=== PATIENT | female | born 1955 | race Caucasian/White ===

== ENCOUNTER → 2018-05-10 | Outpatient (CLI) | payer OTHER ==
--- NOTE | 2018-05-10 13:43 | RAD ---
DATE: 05/10/2018 EXAM: MAMMO ADRIENNE SCREENING BILATERAL HISTORY: Routine screening COMPARISON: 06/23/2016 This study was interpreted with the benefit of Computerized Aided Detection (CAD). Breast Density: SCATTERED The breast parenchyma shows scattered fibroglandular densities. Breast parenchyma level B. FINDINGS: 20 3-D tomosynthesis imaging was performed in CC and MLO projections. No new or enlarging breast densities are seen. Minimal benign type calcifications present. No suspicious microcalcifications have developed. IMPRESSION: There is no mammographic evidence of malignancy in either breast. BI-RADS CATEGORY: 2 BENIGN FINDING(S) RECOMMENDED FOLLOW-UP: 12M 12 MONTH FOLLOW-UP PQRS compliance statement: Patient information was entered into a reminder system with a target due date for the next mammogram. Mammography is a sensitive method for finding small breast cancers, but it does not detect them all and is not a substitute for careful clinical examination. A negative mammogram does not negate a clinically suspicious finding and should not result in delay in biopsying a clinically suspicious abnormality. "Our facility is accredited by the [employer]amm[employer]."
== END | disposition home or self-care (01) ==
LOC: MAMMO 09:59
PROVIDERS: ATTEND Family Medicine
DX: Z12.31 Encounter for screening mammogram for malignant neoplasm of breast (principal)
CPT/HCPCS: 77063; 77067

== ENCOUNTER → 2020-09-12 | Outpatient (CLI) | payer OTHER, MEDICAID ==
--- NOTE | 2020-09-12 09:58 | RAD ---
5 views lumbar spine without comparison for lumbago and right-sided sciatica. FINDINGS: There is no acute osseous or alignment abnormality of the lumbar spine. Intervertebral disc spaces are well-maintained at all levels. There is facet arthrosis at L4-5 and L5-S1, which may prod uce neural foraminal narrowing. This could be better characterized on MRI if clinically warranted. Al so noted is extensive aortoiliac atherosclerosis. IMPRESSION: 1. No acute osseous or alignment abnormality of the lumbar spine. 2. Facet arthrosis of the lower levels. If there is clinical concern for nerve root impingement from neuroforaminal narrowing, further evaluation with MRI should be considered. 3. Extensive aortoiliac atherosclerosis. If there is clinical concern that the patient's symptoms may be attributable to vascular claudication, consider further evaluation with CTA. Electronically signed by: Pete Olsen MD (09/12/2020 9:55 AM) [id number]
--- NOTE | 2020-09-13 10:03 | RAD ---
DATE: 09/12/2020 7:57 AM EXAM: MAMMO ADRIENNE SCREENING BILATERAL HISTORY: Screening COMPARISON: 05/10/2018 Bilateral CC and MLO views of the breasts were performed. Bilateral breast tomosynthesis was performed in CC and MLO projections. This study was interpreted with the benefit of Computerized Aided Detection (CAD). FINDINGS: Breast Density: SCATTERED The breast parenchyma shows scattered fibroglandular densities. Breast parenchyma level B No suspicious masses, microcalcifications or architectural distortion is present to suggest malignancy in either breast. The visualized axillae are unremarkable. IMPRESSION: No mammographic evidence of malignancy. BI-RADS CATEGORY: 1 NEGATIVE RECOMMENDED FOLLOW-UP: 12M 12 MONTH FOLLOW-UP Annual screening mammography is recommended, unless clinically indicated sooner based on symptoms or change in physical exam. PQRS compliance statement: Patient information was entered into a reminder system with a target due date for the next mammogram. Mammography is a sensitive method for finding small breast cancers, but it does not detect them all and is not a substitute for careful clinical examination. A negative mammogram does not negate a clinically suspicious finding and should not result in delay in biopsying a clinically suspicious abnormality. "Our facility is accredited by the [employer]ammography [employer]."
== END ==
LOC: MAMMO 08:10
PROVIDERS: ATTEND Family Medicine
DX: Z12.31 Encounter for screening mammogram for malignant neoplasm of breast (principal); M47.816 Spondylosis without myelopathy or radiculopathy, lumbar region
CPT/HCPCS: 72110; 77063; 77067

== ENCOUNTER 2021-03-11 19:15 | Emergency (ER) | payer OTHER, MEDICAID ==
[~2021-03-11] VITALS: Ht 162.6 cm; Wt 81.8 kg
[2021-03-11 19:44] LABS: BASO # 0.1 x10^3/uL (0.0-0.2); BASO % 1 % (0-3); EOS # 0.2 x10^3/uL (0.0-0.7); EOS % 3 % (0-3); HEMATOCRIT 38.9 % (36.0-47.0); HEMOGLOBIN 13.1 g/dL (12.0-15.5); LYMPH # 2.8 x10^3/uL (1.0-4.8); LYMPH % 33 % (24-48); MEAN CORPUSCULAR HEMOGLOBIN 28 pg (25-35); MEAN CORPUSCULAR HGB CONC 34 g/dL (31-37); MEAN CORPUSCULAR VOLUME 82 fL (79-100); MONO # 0.8 x10^3/uL (0.0-1.1); MONO % 9 % (0-9); NEUT # 4.7 x10^3/uL (1.8-7.7); NEUT % 55 % (31-73); PLATELET COUNT 323 x10^3/uL (140-400); RED BLOOD COUNT 4.72 x10^6/uL (3.50-5.40); RED CELL DISTRIBUTION WIDTH 15.6 % (11.5-14.5); WHITE BLOOD COUNT 8.6 x10^3/uL (4.0-11.0)
--- NOTE | 2021-03-11 19:44 | PHYS DOC ---
Past Medical History Past Medical History: Hypertension, Hypothyroid Past Surgical History: Hysterectomy, Other Additional Past Surgical Histo: left leg Alcohol Use: None Drug Use: None General Adult EDM: Chief Complaint: FLANK PAIN HPI: HPI: Patient is a 65 year old female with a history of hypertension, COPD on oxygen 2 L at home who presents to the ED today complaining of moderate left flank pain, symptoms have been going on intermittently for 1-1/2 weeks. Patient denies anything specifically exacerbating or relieving the pain. Denies any fever, nausea, vomiting, pneumaturia. Denies any personal history of kidney stones. Review of Systems: Review of Systems: Constitutional: Denies fever or chills. [] Eyes: Denies change in visual acuity. [] HENT: Denies nasal congestion or sore throat. [] Respiratory: Denies cough or shortness of breath. [] Cardiovascular: Denies chest pain or edema. [] GI: Denies abdominal pain, nausea, vomiting, bloody stools or diarrhea. [] : Reports left flank pain. Denies dysuria. [] Musculoskeletal: Denies back pain or joint pain. [] Integument: Denies rash. [] Neurologic: Denies headache, focal weakness or sensory changes. [] Psychiatric: Denies depression or anxiety. [] Heart Score: C/O Chest Pain: N/A Risk Factors: Risk Factors: DM, Current or recent (<one month) smoker, HTN, HLP, family history of CAD, obesity. Risk Scores: Score 0 - 3: 2.5% MACE over next 6 weeks - Discharge Home Score 4 - 6: 20.3% MACE over next 6 weeks - Admit for Clinical Observation Score 7 - 10: 72.7% MACE over next 6 weeks - Early Invasive Strategies Current Medications: Current Medications Medications (Trade) Dose Ordered Sig/Musa Start Time Stop Time Status Last Admin Dose Admin Morphine Sulfate (Morphine Sulfate) 4 mg 1X ONCE 03/11/21 19:45 03/11/21 19:46 Ondansetron HCl (Zofran) 4 mg 1X ONCE 03/11/21 19:45 03/11/21 19:46 Allergies: Allergies: Allergies Coded Allergies Type Severity Reaction Last Updated Verified No Known Drug Allergies 07/27/13 No Physical Exam: PE: Constitutional: Well developed, well nourished, no acute distress, non-toxic appearance. [] HENT: Normocephalic, atraumatic, bilateral external ears normal, oropharynx moist, no oral exudates, nose normal. [] Eyes: PERRLA, EOMI, conjunctiva normal, no discharge. [] Neck: Normal range of motion, no tenderness, supple, no stridor. [] Cardiovascular:Heart rate regular rhythm, no murmur [] Lungs & Thorax: Bilateral breath sounds clear to auscultation [] Abdomen: Bowel sounds normal, soft, no tenderness, no masses, no pulsatile masses. [] Skin: Warm, dry, no erythema, no rash. [] Back: No tenderness, mild left CVA tenderness. [] Extremities: No tenderness, no cyanosis, no clubbing, ROM intact, no edema. [] Neurologic: Alert and oriented X 3, normal motor function, normal sensory function, no focal deficits noted. [] Psychologic: Flat affect. EKG: EKG: [] Radiology/Procedures: Radiology/Procedures: []PROCEDURE: CT ABDOMEN PELVIS WO CONTRAST CT ABDOMEN+PELVIS WO History: Reason: left flank pain / Spl. Instructions: / History: Technique: Noncontrast examination of the abdomen and pelvis. Coronal and sa gittal reconstructions were performed. Exposure: One or more of the following individualized dose reduction techniques were utilized for this examination: 1. Automated exposure control 2. Adjustment of the mA and/or kV according to patient size 3. Use of iterative reconstruction technique. Comparison: None Findings: Lower chest: Mild bilateral lower lobe mucous plugging. Abdomen and pelvis: The liver, spleen pancreas and gallbladder are unremarkable. No biliary ductal dilatation. Left adrenal adenoma measures 0.8 cm. No renal calculus. No hydronephrosis. No ureteral or urinary bladder calculus. Normal appendix. No evidence of bowel obstruction. No pathologic lymphadenopathy. No ascites. Prior hysterectomy. Small fat-containing umbilical hernia. Atheromatous plaque throughout the nonaneurysmal abdominal aorta and branch vessels. Bones: No pathologic osseous lesions. Impression: 1. No acute abdominal or pelvic pathology. No obstructing urolithiasis. Electronically signed by: Dagoberto Ball DO (03/11/2021 8:39 PM) [facility] DICTATED and SIGNED BY: DAGOBERTO BALL DO DATE: 03/11/[id number] 0 Course & Med Decision Making: Course & Med Decision Making Pertinent Labs and Imaging studies reviewed. (See chart for details) This is a 65-year-old female patient presented to the ED today complaining of left flank pain, symptoms intermittently for 1-1/2 weeks. CBC with a normal WBC, CMP with potassium of 2.9. Patient was given potassium replacement in the ED. Encouraged to increase dietary potassium intake. UA negative for infection, CT of the abdomen and pelvic is negative for any acute findings. Patient was discharged home. Follow-up with PCP in the course of this week if pain persist. Provided return precautions. Dragon Disclaimer: Dragon Disclaimer: This electronic medical record was generated, in whole or in part, using a voice recognition dictation system. Departure Departure Impression: Primary Impression: Hypokalemia Additional Impression: Left flank pain Disposition: 01 HOME / SELF CARE / HOMELESS Condition: STABLE Referrals: Evelyn TOVAR MD (PCP) Follow-up in the course of this week Patient Instructions: Flank Pain, [id number], Hypokalemia-Brief Additional Instructions: You were evaluated in the emergency room for left flank pain. Your CT of the abdomen and pelvic is negative for any acute findings, your urine is negative for infection. Your potassium was low. Increase your dietary potassium intake through foods like bananas. Follow-up with your doctor in the course of this week if pain persist ABDI DUQUE APRN Mar 11, 2021 19:44
[2021-03-11] MEDS ORDERED: ONDANSETRON PF 4 MG/2 ML VIAL. IVP ONE (19:45)
[2021-03-11] MEDS ORDERED: MORPHINE SULFATE 4 MG/ML INJ. IVP ONE ×2 (19:45→21:30)
[2021-03-11 19:47] LABS: BILIRUBIN,URINE NEGATIVE (NEG); CLARITY,URINE CLEAR; COLOR,URINE YELLOW; NITRITE,URINE NEGATIVE (NEG); PH,URINE 6.5 (<5.0-8.0); PROTEIN,URINE 100 mg/dL (NEG-TRACE)
[2021-03-11 19:53] LABS: BACTERIA,URINE 0 /HPF (0-FEW); RBC,URINE 0 /HPF (0-2); WBC,URINE OCC /HPF (0-4)
[2021-03-11 20:12] LABS: ALBUMIN 3.5 g/dL (3.4-5.0); ALBUMIN/GLOBULIN RATIO 0.9 (1.0-1.7); CALCIUM 9.5 mg/dL (8.5-10.1); GFR 55.3; TOTAL BILIRUBIN 0.2 mg/dL (0.2-1.0); TOTAL PROTEIN 7.2 g/dL (6.4-8.2)
[2021-03-11 20:13] LABS: POTASSIUM 2.9 mmol/L (3.5-5.1)
[2021-03-11] MEDS ORDERED: POTASSIUM CHLORIDE 20 MEQ TABLET.ER. PO ONE ×2 (20:15→21:00)
--- NOTE | 2021-03-11 20:42 | RAD ---
CT ABDOMEN+PELVIS WO History: Reason: left flank pain / Spl. Instructions: / History: Technique: Noncontrast examination of the abdomen and pelvis. Coronal and sagittal reconstructions we re performed. Exposure: One or more of the following individualized dose reduction techniques were utilized for thi s examination: 1. Automated exposure control 2. Adjustment of the mA and/or kV according to patient size 3. Use of iterative reconstruction technique. Comparison: None Findings: Lower chest: Mild bilateral lower lobe mucous plugging. Abdomen and pelvis: The liver, spleen pancreas and gallbladder are unremarkable. No biliary ductal di latation. Left adrenal adenoma measures 0.8 cm. No renal calculus. No hydronephrosis. No ureteral or urinary bladder calculus. Normal appendix. No evidence of bowel obstruction. No pathologic lymphadenopathy. No ascites. Prior h ysterectomy. Small fat-containing umbilical hernia. Atheromatous plaque throughout the nonaneurysmal abdominal aorta and branch vessels. Bones: No pathologic osseous lesions. Impression: 1. No acute abdominal or pelvic pathology. No obstructing urolithiasis. Electronically signed by: Dagoberto Del Toro DO (03/11/2021 8:39 PM) [facility]
[2021-03-11] MEDS ORDERED: KETOROLAC 15 MG/ML VIAL. IVP ONE (21:30)
[2021-03-11 23:30] VITALS: BP 142/82
== END 2021-03-11 23:52 | disposition home or self-care (01) ==
LOC: ER 19:15
DX: R10.9 Unspecified abdominal pain (principal); E87.6 Hypokalemia; I10 Essential (primary) hypertension; E03.9 Hypothyroidism, unspecified; J44.9 Chronic obstructive pulmonary disease, unspecified; Z90.710 Acquired absence of both cervix and uterus
CPT/HCPCS: 36415; 74176; 80053; 81001; 85025; 96374; 96375; 99285; J2270; J2405

== ENCOUNTER → 2021-11-11 | Outpatient (CLI) | payer OTHER, MEDICAID ==
--- NOTE | 2021-11-11 12:18 | RAD ---
XR CHEST 2V INDICATION: COPD COMPARISON STUDY: 07/27/2013. FINDINGS: Lungs: Normal lung volume. No pulmonary mass or consolidation. The tracheobronchial tree and hilar st ructures are normal. Pleura: No pleural effusion or pneumothorax. Heart and Mediastinum: The cardiomediastinal silhouette is normal. Atherosclerosis of the thoracic ao rta. Bones and Soft Tissues: The bones and soft tissues are within normal limits. IMPRESSION: No acute cardiopulmonary process. Electronically signed by: Mikel Sandhu MD (11/11/2021 12:16 PM) [id number]
== END ==
LOC: RAD 09:59
PROVIDERS: ATTEND Internal Medicine Pulmonary Disease
DX: I70.0 Atherosclerosis of aorta (principal); J44.9 Chronic obstructive pulmonary disease, unspecified
CPT/HCPCS: 71046